=== PATIENT | male | born 1995 | race Caucasian/White ===

== ENCOUNTER 2017-12-22 08:23 | Emergency (ER) | payer BC, OTHER ==
[~2017-12-22] VITALS: Ht 177.8 cm; Wt 61.2 kg
[~2017-12-22 08:23] MED LIST: BACTRIM DS 8001 TA1 PO; CLINDAMYCIN HC300 MG PO; CLINDAMYCIN150 MG PO; ELIMITE 5%60 GM T; MOTRIN800 MG PO; NKHM; ULTRAM50 MG PO; VIBRAMYCIN100 MG PO; ZOFRAN ODT4 MG SL
== END 2017-12-22 09:30 | disposition home or self-care (01) ==
LOC: ED 08:23
DX: S05.8X1A Other injuries of right eye and orbit, initial encounter (principal); F17.200 Nicotine dependence, unspecified, uncomplicated; Z88.0 Allergy status to penicillin; W22.8XXA Striking against or struck by other objects, initial encounter; Y93.89 Activity, other specified; Y92.89 Other specified places as the place of occurrence of the external cause; Y99.8 Other external cause status